=== PATIENT | male | born 1990 | race Caucasian/White ===

== ENCOUNTER 2017-03-20 12:39 | Day surgery (SDC) | payer BC ==
[~2017-03-20] VITALS: Ht 170.2 cm; Wt 107.0 kg
[2017-03-20 13:06] VITALS: BP 135/83
[2017-03-20] MEDS ORDERED: ASCO500C2 PO (13:12)
[2017-03-20] MEDS ORDERED: MULTIVITAMIN (13:12)
[2017-03-20] MEDS ORDERED: LACTATED RINGERS 1,000 ML IV SCH (13:12)
[2017-03-20] MEDS ORDERED: ACID1TAB PO (13:12)
[2017-03-20] MEDS ORDERED: EPINEPHRINE 1 MG/ML, 1ML ONE (15:07)
[2017-03-20] MEDS ORDERED: BUPIVACAINE/PF 0.5% ONE ×2 (15:07→16:58)
[2017-03-20] MEDS ORDERED: MIDAZOLAM 1 MG/ML, 2ML ONE (15:24)
[2017-03-20] MEDS ORDERED: FENTANYL PF 250 MCG/5ML ONE (15:24)
[2017-03-20] MEDS ORDERED: ALBUTEROL SULFATE 2.5 MG/3 ML NPPB PRN (16:30)
[2017-03-20] MEDS ORDERED: OXYcodone 5 MG/5 ML ORAL.SOL UDC PO PRN (16:30)
[2017-03-20] MEDS ORDERED: ACETAMINOPHEN 325 MG TABLET PO PRN (16:30)
[2017-03-20] MEDS ORDERED: LORazepam 2 MG/ML, 1ML IVPush PRN (16:30)
[2017-03-20] MEDS ORDERED: FENTANYL PF 100 MCG/2ML IV PRN (16:30)
[2017-03-20] MEDS ORDERED: LABETALOL 5MG/ML, 20ML IV PRN (16:30)
[2017-03-20] MEDS ORDERED: MEPERIDINE/PF 25MG/0.5ML IVPush PRN (16:30)
[2017-03-20] MEDS ORDERED: HYDROmorphone 1 MG/ML, 1ML IV PRN (16:30)
[2017-03-20] MEDS ORDERED: PROMETHAZINE 25 MG/ML, 1ML IV PRN (16:30)
[2017-03-20] MEDS ORDERED: hydrALAzine 20 MG/ML, 1ML IV PRN (16:30)
[2017-03-20] MEDS ORDERED: DEXAMETHASONE 4 MG/ML, 1ML ONE (16:47)
[2017-03-20] MEDS ORDERED: ONDANSETRON 2MG/ML, 2ML ONE ×2 (16:47→18:09)
[2017-03-20] MEDS ORDERED: PROPOFOL 10 MG/ML, 20ML ONE (16:47)
[2017-03-20] MEDS ORDERED: NEOSTIGMINE 1 MG/ML, 10ML ONE (16:47)
[2017-03-20] MEDS ORDERED: SUCCINYLCHOLINE 20 MG/ML, 10ML ONE (16:47)
[2017-03-20] MEDS ORDERED: CEFAZOLIN 1,000 MG ONE (16:47)
[2017-03-20] MEDS ORDERED: GLYCOPYRROLATE 0.2MG/1ML, 5ML ONE (16:47)
[2017-03-20] MEDS ORDERED: ROCURONIUM 10 MG/ML,10ML ONE (16:47)
[2017-03-20] MEDS ORDERED: ACETAMINOPHEN 650 MG/20.3 ML UDC ONE (17:55)
[2017-03-20] MEDS ORDERED: OXYcodone 5 MG/5 ML ORAL.SOL UDC ONE (17:56)
[2017-03-20] MEDS ORDERED: ONDANSETRON 2MG/ML, 2ML IVPush PRN ×2 (18:30)
== END 2017-03-20 20:00 | disposition home or self-care (01) ==
LOC: OUT 12:39 → 4NOR 19:10 → OUT 20:00
PROVIDERS: ATTEND Surgery
DX: K42.0 Umbilical hernia with obstruction, without gangrene (principal); Z88.0 Allergy status to penicillin; K08.409 Partial loss of teeth, unspecified cause, unspecified class; Z72.89 Other problems related to lifestyle; Z79.899 Other long term (current) drug therapy
CPT/HCPCS: 49587; C1781; J0171; J0330; J0690; J1100; J2250; J2405; J2704; J3010; J3490; J7120; J2710